=== PATIENT | female | born 1990 | race Caucasian/White ===

== ENCOUNTER 2022-05-12 11:36 | Outpatient (CLI) | payer BC | END 2022-05-12 11:37 | disposition home or self-care (01) | LOC: BURRAD 11:36 | PROVIDERS: ATTEND Physician Assistant | DX: M54.31 Sciatica, right side (principal); M25.78 Osteophyte, vertebrae | CPT/HCPCS: 72100 ==

== ENCOUNTER 2023-02-12 19:31 | Emergency (ER) | payer BC ==
[~2023-02-12 19:31] MED LIST: Iopamidol 370 76% 100 ML VIAL ONE
[2023-02-12] MEDS ORDERED: methylPREDNISolone Sod Succ/PF 125 MG/2 ML VIAL ONE (20:06)
[2023-02-12] MEDS ORDERED: diphenhydrAMINE 50 MG/ML VIAL ONE (20:06)
[2023-02-12] MEDS ORDERED: Famotidine/PF 20 mg/2ml Vial ONE (20:06)
[2023-02-12 20:17] LABS: Bilirubin Negative (Negative); Blood, Urine Negative (Negative); Clarity Clear (Clear); Glucose, Urine (Dipstick) Negative (Negative); Ketone, Urine Negative (Negative); Leukocyte Negative (Negative); Nitrite Negative (Negative); Protein, Urine (Dipstick) Negative (Neg-Trace); Urobilinogen 0.2 mg/dL (Less than 2)
[2023-02-12 20:22] LABS: Pregnancy Test - Urine (BHCG) Negative (Negative); Pregu Control Background? CLEAR/WHITE (CLR/WHITE); Pregu Control Bar Appear? YES (CONTROL BAR)
[2023-02-12 20:24] LABS: #Eosinphils 0.3 thou/uL (0.0-0.7); #Lymphocytes 2.5 thou/uL (1.20-3.40); #Monocytes 0.5 thou/uL (0.11-0.59); #Neutrophils 2.3 thou/uL (1.40-6.50); %Basophils 0.8 % (0.0-1.0); %Eosinophils 4.9 % (0.0-10.0); %Lymphocytes 44.2 % (21.0-51.0); %Monocytes 9.5 % (0.0-10.0); %Neutrophils 40.6 % (42.0-75.0); Hemoglobin 9.7 g/dL (12.0-16.0); Mean Corpuscular HGB CONC 30.4 g/dL (32.0-36.0); Mean Corpuscular Volume 72.5 fl (78.0-98.0); Mean Platelet Volume 7.5 fL (7.4-10.4); Platelet Count 366 10x3/uL (130-400); Red Blood Cell (RBC) Count 4.39 mill/uL (4.20-5.40); White Blood Cell (WBC) Count 5.7 10x3/uL (4.8-10.8)
[2023-02-12 20:24] LABS: Amphetamine Not Detected (NotDetected); Barbiturates Screen Not Detected (NotDetected); Benzodiazepine Screen Not Detected (NotDetected); Cocaine Metabolite Screen Not Detected (NotDetected); Methadone Not Detected (NotDetected); Methamphetamine Not Detected (NotDetected); Opiate Screen Not Detected (NotDetected); Oxycodone Screen Not Detected (NotDetected); Phencyclidine (PCP) Not Detected (NotDetected); THC/Cannabinoid Screen Not Detected (NotDetected); Tricyclic Screen Not Detected (NotDetected)
[2023-02-12 20:25] LABS: Medtox Control Line Valid? VALID (VALID)
[2023-02-12 20:27] LABS: ALT (SGPT) 20 U/L (8-55); AST (SGOT) 21 U/L (5-34); Albumin 4.4 g/dL (3.5-5.0); Alkaline Phosphatase 73 U/L (40-110); Anion Gap 12 mmol/L (10-20); BUN (Urea Nitrogen) 9 mg/dL (7.0-18.7); Bilirubin, Total 0.2 mg/dL (0.2-1.2); Calc. Creatinine Clearance 0 mL/min (70-130); Calcium 9.3 mg/dL (7.8-10.44); Carbon Dioxide 25 mmol/L (22-29); Chloride 106 mmol/L (98-107); Estimated GFR 88; Globulin 3.8 g/dL (2.4-3.5); Glucose 85 mg/dL (70-105); Lipase 35 U/L (8-78); Magnesium 2.3 mg/dL (1.6-2.6); Potassium 3.8 mmol/L (3.5-5.1); Protein, Total 8.2 g/dL (6.0-8.3); Sodium 139 mmol/L (136-145)
[2023-02-12 23:07] LABS: SARS-CoV-2 NAA Rapid Test Not Detected (NotDetected)
[2023-02-12] MEDS ORDERED: Morphine 4 MG/ML VIAL ONE (23:55)
== END 2023-02-13 00:05 | disposition short-term general hospital (02) ==
LOC: BURERS 19:31
DX: C56.1 Malignant neoplasm of right ovary (principal); E66.9 Obesity, unspecified; K21.9 Gastro-esophageal reflux disease without esophagitis; Z20.822 Contact with and (suspected) exposure to COVID-19; Z79.899 Other long term (current) drug therapy
CPT/HCPCS: 74177; 80053; 80306; 81003; 81025; 83605; 83690; 83735; 85025; 96374; 96375; J1200; J2270; J2930; Q9967; S0028; U0002